=== PATIENT | female | born 1965 | race African-American/Black ===

== ENCOUNTER 2020-12-04 09:22 | Day surgery (SDC) | payer BC, SELFPAY ==
[2020-12-03 10:48] LABS: BASOPHILS % (AUTO) 0.8 % (0.0-2.0); EOSINOPHILS # (AUTO) 0.1 K/uL (0.0-0.4); EOSINOPHILS % (AUTO) 4.1 % (0.0-4.0); HEMATOCRIT 41.1 % (36-48); HEMOGLOBIN 13.9 g/dL (12.0-16.0); LYMPHOCYTES # (AUTO) 1.1 K/uL (1.0-5.5); LYMPHOCYTES % (AUTO) 39.1 % (20.5-51.5); MEAN CORPUSCULAR HEMOGLOBIN 28 pg (27-31); MEAN CORPUSCULAR HGB CONC 34 % (32-36); MEAN CORPUSCULAR VOLUME 83 fL (79.0-98.0); MONOCYTES # (AUTO) 0.3 K/uL (0.0-1.0); MONOCYTES % (AUTO) 10.1 % (1.7-9.3); NEUTROPHILS # (AUTO) 1.3 K/uL (1.8-7.7); NEUTROPHILS % (AUTO) 45.9 % (40.0-70.0); PLATELET COUNT (AUTO) 183 K/uL (130-430); RED BLOOD CELL COUNT(AUTO) 4.96 MIL/uL (4.2-6.2); RED CELL DISTRIBUTION WIDTH 13.7 % (9.0-15.0); WHITE BLOOD COUNT (AUTO) 2.9 K/uL (4.8-10.8)
[2020-12-03 10:58] LABS: PROTHROMBIN TIME 10.3 SECS (9.5-12.5)
[2020-12-03 11:00] LABS: CALCIUM 9.4 mg/dL (8.4-11.0); CREATININE 0.73 mg/dL (0.55-1.30); POTASSIUM 3.9 mmol/L (3.5-5.1); TOTAL BILIRUBIN 0.4 mg/dL (0.0-1.0)
[2020-12-03 11:40] LABS: BILIRUBIN,URINE NEGATIVE (NEGATIVE); BLOOD, URINE NEGATIVE (NEGATIVE); CLARITY/URINE CLEAR (CLEAR); COLOR,URINE YELLOW (YELLOW); GLUCOSE,URINE NEGATIVE (NEGATIVE); KETONES,URINE NEGATIVE (NEGATIVE); LEUKOCYTE ESTERASE ,URINE NEGATIVE (NEGATIVE); NITRITE, URINE NEGATIVE (NEGATIVE); PH,URINE 7.5 (5.0-8.0); PROTEIN URINE NEGATIVE (NEGATIVE); UROBILINOGEN,URINE 0.2 (0.2-1.0)
[~2020-12-04] VITALS: Ht 170.2 cm; Wt 62.1 kg
[~2020-12-04 09:22] MED LIST: CEFAZOLIN SOD 2 GM in D5W 50 ML IV ONE
[2020-12-04] MEDS ORDERED: HYDROmorphone 1 MG/ML INJ. CARTRIDGE IVP PRN (11:45)
[2020-12-04] MEDS ORDERED: MEPERIDINE HCL/PF 25 MG/ML DISP.SYRIN IVP PRN (11:45)
[2020-12-04] MEDS ORDERED: LR 1,000 ML IV SCH (11:45)
[2020-12-04] MEDS ORDERED: KETOROLAC TROMETHAMINE 30 MG VIAL IVP PRN (11:45)
[2020-12-04] MEDS ORDERED: NALOXONE HCL 0.4 MG/ML AMP (NARCAN) IVP PRN (11:45)
[2020-12-04] MEDS ORDERED: ONDANSETRON HCL 4 MG/2 ML VIAL IVP PRN ×2 (11:45→12:30)
[2020-12-04] MEDS ORDERED: fentaNYL CITRATE/PF 100 MCG/2 ML AMP ONE (12:18)
[2020-12-04] MEDS ORDERED: MIDAZOLAM HCL 5 MG/ML VIAL (VERSED) IV ONE (12:18)
[2020-12-04] MEDS ORDERED: LR 1,000 ML IV.SOLN IV ONE (12:18)
[2020-12-04] MEDS ORDERED: DEXAMETHASONE SOD PHOSPHATE 4 MG/ML VIAL ONE (12:18)
[2020-12-04] MEDS ORDERED: METOCLOPRAMIDE HCL 10 MG/2 ML VIAL ONE (12:18)
[2020-12-04] MEDS ORDERED: WATER FOR IRRIGATION,STERILE 1,000 ML IRRIG.SOLN IR ONE (12:18)
[2020-12-04] MEDS ORDERED: ONDANSETRON HCL 4 MG/2 ML VIAL ONE (12:18)
[2020-12-04] MEDS ORDERED: KETOROLAC TROMETHAMINE 30 MG VIAL ONE (12:18)
[2020-12-04] MEDS ORDERED: NS IRRIG SOLN 1000 ML IR ONE (12:18)
[2020-12-04] MEDS ORDERED: SEVOFLURANE 15 MIN GAS INH ONE (12:18)
[2020-12-04] MEDS ORDERED: HYDROcodone/ACETAMIN 5-325 MG TAB (NORCO/ VICODIN) PO PRN ×2 (12:30)
[2020-12-04 14:20] VITALS: BP_SYST 125
== END 2020-12-04 14:10 | disposition home or self-care (01) ==
LOC: SDS 09:22 → SMU 09:23 → SDS 14:10
PROVIDERS: ATTEND Obstetrics & Gynecology Gynecology
DX: N95.0 Postmenopausal bleeding (principal); R93.89 Abnormal findings on diagnostic imaging of other specified body structures; E03.9 Hypothyroidism, unspecified; E78.5 Hyperlipidemia, unspecified; K58.9 Irritable bowel syndrome, unspecified; Z88.2 Allergy status to sulfonamides; Z91.040 Latex allergy status; Z79.899 Other long term (current) drug therapy; Z20.822 Contact with and (suspected) exposure to COVID-19; Z98.890 Other specified postprocedural states
CPT/HCPCS: 36415; 58558; 71046; 80053; 81003; 85025; 85610; 85730; 86886; 86900; 86901; 87086; 88305; 93005; C1819; J0690; J1100; J1885; J2250; J2405; J2765; J3010; J7060; J7120; U0003